=== PATIENT | female | born 1995 | race Caucasian/White ===

== ENCOUNTER 2017-03-30 23:44 | Emergency (ER) | payer OTHER ==
--- NOTE | 2017-03-31 00:04 | ED Physician Documentation ---
PD HPI FEMALE - Stated complaint Stated Complaint: FEMALE - Chief complaint Chief Complaint: Abd Pain - History obtained from History obtained from: Patient - History of Present Illness Timing - onset: Yesterday Timing - duration: Days (2) Timing - details: Abrupt onset, Intermittant, Waxing and waning Associated symptoms: Abdominal pain, Vaginal bleeding (menstrual amount). No: Fever Contributing factors: No: Exposed to STD Similar symptoms before: Diagnosis (dysmenorrhea in the past and uses Midol and Zofran. Has wirse than prior cramping and pain. No history of cysts nor STDs.) Recently seen: Not recently seen Review of Systems Constitutional: denies: Fever, Chills, Myalgias Nose: denies: Rhinorrhea / runny nose, Congestion Throat: denies: Sore throat Cardiac: denies: Chest pain / pressure Respiratory: denies: Dyspnea : reports: Vaginal bleeding. denies: Dysuria, Frequency, Hematuria, Discharge Skin: denies: Rash, Lesions PD PAST MEDICAL HISTORY - Past Medical History Cardiovascular: None : None - Present Medications Home Medications: Ambulatory Orders Medication Instructions Recorded Confirmed Folic Acid 0.4 mg PO DAILY 03/30/17 03/30/17 Hydrocodone/Acetaminophen [[place] 1 each PO Q6H PRN #15 tablet 03/31/17 5-325 Tablet] Naproxen [Naprosyn] 500 mg PO BID PRN #20 tablet 03/31/17 - Allergies Allergies/Adverse Reactions: Allergies Allergy/AdvReac Type Severity Reaction Status Date / Time cefaclor [From Ceclor] Allergy Hives Verified 03/30/17 23:51 metoclopramide HCl * Allergy Anxiety Verified 03/30/17 23:51 [From Reglan] PD ED PE NORMAL - Vitals Vital signs reviewed: Yes - General General: Alert and oriented X 3, Well developed/nourished, Other (appears uncomfortable) - HEENT HEENT: Pharynx benign - Neck Neck: Supple, no meningeal sign, No adenopathy - Cardiac Cardiac: RRR, No murmur - Respiratory Respiratory: Clear bilaterally - Abdomen Abdomen: Normal bowel sounds, Soft, Non distended, No organomegaly, Other ( tender suprapubic and LLQ; not tender RLQ. ) - Female Female : Deferred - Rectal Rectal: Deferred - Back Back: No CVA TTP - Derm Derm: Normal color, Warm and dry, No rash - Neuro Neuro: Alert and oriented X 3, No motor deficit, Normal speech Results - Vitals Vitals: Vital Signs - 24 hr 03/30/17 03/31/17 23:46 01:05 Temperature 36.2 C L Heart Rate 91 76 Respiratory 89 H 18 Rate Blood Pressure 125/81 H 125/71 O2 Saturation 100 100 Oxygen O2 Source Room air - Labs Labs: Laboratory Tests 03/31/17 00:15 Urine Color YELLOW Urine Clarity HAZY Urine pH 7.0 Ur Specific [place] <=1.005 Urine Protein NEGATIVE Urine Glucose (UA) NEGATIVE Urine Ketones NEGATIVE Urine Occult Blood LARGE H Urine Nitrite NEGATIVE Urine Bilirubin NEGATIVE Urine Urobilinogen 0.2 (NORMAL) Ur Leukocyte Esterase NEGATIVE Urine RBC 6-10 H Urine WBC 0-3 Ur Squamous Epith Cells RARE Squamous Urine Bacteria None Seen Ur Microscopic Review INDICATED Urine Culture Comments NOT INDICATED Urine HCG, Qual NEGATIVE PD MEDICAL DECISION MAKING - ED course Complexity details: reviewed results (not and not UTI. Not tender RLQ. so Reasonable to be presuming dysmenorrhea. Consider ovarian cyst as possible. Discussed U/S or not and we opted with just treating the symptoms. Denies risk for STD. ), considered differential, d/w patient Departure - Departure Disposition: 01 Home, Self Care Clinical Impression: Dysmenorrhea Condition: Stable Record reviewed to determine appropriate education?: Yes Instructions: ED Cramping Menstrual Follow-Up: [facility] [Provider Group] Prescriptions: Naproxen [Naprosyn] 500 mg PO BID PRN #20 tablet PRN Reason: Pain Hydrocodone/Acetaminophen [[place] 5-325 Tablet] 1 each PO Q6H PRN #15 tablet PRN Reason: Pain Comments: Drink lots of fluids. Ibuprofen or Naproxen twice daily for 5-6 days. Add Tylenol for milder pains, and hydrocodone as needed for worse pains. Follow up PCP if recurringly severe cramps with periods. Follow up as well if any symptoms of vaginitis (discharge, itching, odor, painful intercourse) as that can cause more painful periods as well. Discharge Date/Time: 03/31/17 01:06
[2017-03-31 00:29] LABS: BILIRUBIN,URINE NEGATIVE (NEGATIVE)
[2017-03-31 00:36] LABS: HCG UR QUAL NEGATIVE; UA w/ MICROSCOPIC CHARGE YES
[2017-03-31 00:37] LABS: UR CULTURE IF IND NOT INDICATED; WBC,URINE 0-3 /HPF (0-5)
[2017-03-31] MEDS ORDERED: HYDROcod/ACET 5/325 Prepack 6 PO ONE ×2 (00:37→00:43)
[2017-03-31] MEDS ORDERED: HYDROcod/ACETAM 5/325 MG TABLET PO STA (00:37)
[2017-03-31] MEDS ORDERED: ONDANSETRON ODT 4 MG TABLET TL STA (00:37)
[2017-03-31] MEDS ORDERED: IBUPROFEN 600 MG TABLET PO STA (00:37)
[2017-03-31] MEDS ORDERED: HYDROcod/ACETAM 5/325 MG TABLET ONE (00:43)
[2017-03-31] MEDS ORDERED: ONDANSETRON ODT 4 MG TABLET ONE (00:43)
[2017-03-31] MEDS ORDERED: IBUPROFEN 600 MG TABLET PO ONE (00:44)
[2017-03-31 01:06] VITALS: BP 125/71
== END 2017-03-31 01:06 | disposition home or self-care (01) ==
LOC: ED 23:44
DX: N94.6 Dysmenorrhea, unspecified (principal)
CPT/HCPCS: 81001; 81025; 99283; A9270; Q0162; 81003; 87086

== ENCOUNTER 2018-05-15 00:03 | Emergency (ER) | payer OTHER ==
[2018-05-15 00:59] LABS: BILIRUBIN,URINE NEGATIVE (NEGATIVE); GLUCOSE, URINE (UA) NEGATIVE (NEGATIVE); KETONES,URINE (UA) NEGATIVE (NEGATIVE); LEUKOCYTE ESTERASE, URINE NEGATIVE (NEGATIVE); NITRITE,URINE NEGATIVE (NEGATIVE); OCCULT BLOOD,URINE NEGATIVE (NEGATIVE); PH,URINE 6.5 PH (5.0-7.5); PROTEIN,URINE NEGATIVE (NEGATIVE); UROBILINOGEN,URINE 0.2 (NORMAL) E.U./dL (NORMAL)
[2018-05-15 01:01] LABS: CLARITY,URINE CLEAR (CLEAR)
[2018-05-15 01:01] LABS: BASOPHILS % (AUTO) 0.4 %; EOSINOPHILS # (AUTO) 0.3 10^3/uL (0.0-0.7); EOSINOPHILS % (AUTO) 2.9 %; LYMPHOCYTES % (AUTO) 35.1 %; MEAN CORPUSCULAR HEMOGLOBIN 30.1 pg (27.0-31.0); MEAN CORPUSCULAR VOLUME 85.9 fL (81.0-99.0); MEAN PLATELET VOLUME 9.1 fL (7.9-10.8); MONOCYTES # (AUTO) 0.6 10^3/uL (0.0-1.0); MONOCYTES % (AUTO) 7.3 %; NEUTROPHILS # (AUTO) 4.6 10^3/uL (1.5-6.6); NEUTROPHILS % (AUTO) 54.3 %; PLT - PLATELET COUNT 253 10^3/uL (130-450); RED BLOOD COUNT 4.64 10^6/uL (4.20-5.40); RED CELL DISTRIBUTION WIDTH 12.7 % (12.0-15.0); WHITE BLOOD COUNT 8.5 x10^3/uL (4.8-10.8)
[2018-05-15 01:12] LABS: ALBUMIN/GLOBULIN RATIO 1.4 (1.0-2.2); CALCIUM 9.4 mg/dL (8.5-10.3); CREATININE 0.6 mg/dL (0.4-1.0); TOTAL PROTEIN 8.5 g/dL (6.7-8.2)
[2018-05-15 01:25] LABS: HCG,QUALITATIVE BLOOD NEGATIVE
--- NOTE | 2018-05-15 01:25 | XRAY Report ---
Procedure Date: 05/15/2018 Accession Number: [id number] / [id number] Procedure: XR - Chest 2 View X-Ray CPT Code: 70155 FULL RESULT: EXAM: CHEST RADIOGRAPHY EXAM DATE: 05/15/2018 01:08 AM. CLINICAL HISTORY: CP. COMPARISON: None. TECHNIQUE: 2 views. FINDINGS: Lungs/Pleura: No focal opacities evident. No pleural effusion. No pneumothorax. Normal volumes. Mediastinum: Heart and mediastinal contours are unremarkable. Other: None. IMPRESSION: Normal 2-view chest radiography. RADIA
--- NOTE | 2018-05-15 01:36 | ED Physician Documentation ---
History of Present Illness - Stated complaint Stated Complaint: DIZZINESS,SOA - Chief complaint Chief Complaint: General - History obtained from History obtained from: Patient - Additonal information Additional information: 22-year-old female presents the emergency department with increasing general fatigue, weakness, shortness of breath and chest pain which started this evening. The symptoms have been ongoing and progressive. Tonight the patient developed sharp stabbing chest pain. The patient denies any concern for being . The patient denies abdominal pain, dysuria, vomiting, vaginal bleeding or blood in her stools. The patient denies recent URI symptoms or peripheral edema. The patient denies unilateral leg weakness. No other associated symptoms. No triggering factors. The patient also reports that her hair seems to be falling out. Symptoms are described as moderate Review of Systems Constitutional: reports: Fatigue. denies: Fever, Chills Eyes: denies: Discharge Ears: denies: Ear pain Nose: denies: Congestion Throat: denies: Sore throat Cardiac: reports: Chest pain / pressure, Palpitations. denies: Pedal edema, Calf pain Respiratory: reports: Dyspnea. denies: Cough, Hemoptysis, Wheezing GI: denies: Abdominal Pain, Vomiting : denies: Dysuria, Hematuria Skin: denies: Rash Musculoskeletal: denies: Neck pain Neurologic: denies: Generalized weakness, Syncope Immunocompromised: denies: Chemotherapy PD PAST MEDICAL HISTORY - Past Medical History Cardiovascular: None Respiratory: Asthma : None - Past Surgical History Past Surgical History: No - Present Medications Home Medications: Ambulatory Orders Medication Instructions Recorded Confirmed Folic Acid 0.4 mg PO DAILY 03/30/17 03/30/17 Hydrocodone/Acetaminophen [[place] 1 each PO Q6H PRN #15 tablet 03/31/17 5-325 Tablet] Naproxen [Naprosyn] 500 mg PO BID PRN #20 tablet 03/31/17 - Allergies Allergies/Adverse Reactions: Allergies Allergy/AdvReac Type Severity Reaction Status Date / Time cefaclor [From Ceclor] Allergy Hives Verified 03/30/17 23:51 metoclopramide HCl * Allergy Anxiety Verified 03/30/17 23:51 [From Reglan] codeine AdvReac Nausea Verified 05/15/18 00:17 - Social History Does the pt smoke?: No Smoking Status: Never smoker Does the pt drink ETOH?: No Does the pt have substance abuse?: No - Immunizations Immunizations are current?: Yes PD ED PE NORMAL - General General: Alert and oriented X 3, No acute distress - HEENT HEENT: Atraumatic, PERRL, EOMI, Ears normal - Neck Neck: Supple, no meningeal sign - Cardiac Cardiac: RRR, Strong equal pulses - Respiratory Respiratory: No respiratory distress, Clear bilaterally - Abdomen Abdomen: Soft, Non tender - Derm Derm: Normal color - Extremities Extremities: No deformity, No edema - Neuro Neuro: Alert and oriented X 3, Normal speech - Psych Psych: Normal mood Results - Vitals Vitals: Vital Signs - 24 hr 05/15/18 00:14 Temperature 36.5 C Heart Rate 89 Respiratory 18 Rate Blood Pressure 118/75 O2 Saturation 99 Oxygen O2 Source Room air - EKG (time done) 00: 35 Rate: Rate (enter#) Rhythm: NSR Intervals: Normal NC, QRS normal QRS: Normal Ischemia: Normal ST segments Other comments: Other comments (Normal sinus rhythm without acute ischemic changes) - Labs Labs: Laboratory Tests 05/15/18 05/15/18 05/15/18 00:43 00:45 00:45 WBC 8.5 RBC 4.64 Hgb 14.0 Hct 39.9 MCV 85.9 MCH 30.1 MCHC 35.0 RDW 12.7 Plt Count 253 MPV 9.1 Neut # (Auto) 4.6 Lymph # (Auto) 3.0 Sunflower # (Auto) 0.6 Eos # (Auto) 0.3 Baso # (Auto) 0.0 Absolute Nucleated RBC 0.00 Nucleated RBC % 0.1 Sodium 138 Potassium 3.5 Chloride 104 Carbon Dioxide 25 Anion Gap 9.0 BUN 12 Creatinine 0.6 Estimated GFR (MDRD) 124 Glucose 88 Calcium 9.4 Magnesium 2.0 Total Bilirubin 1.0 AST 20 ALT 13 Alkaline Phosphatase 67 Troponin I Total Protein 8.5 H Albumin 5.0 Globulin 3.5 Albumin/Globulin Ratio 1.4 Lipase 39 Serum HCG, Qual Urine Color YELLOW Urine Clarity CLEAR Urine pH 6.5 Ur Specific [place] 1.020 Urine Protein NEGATIVE Urine Glucose (UA) NEGATIVE Urine Ketones NEGATIVE Urine Occult Blood NEGATIVE Urine Nitrite NEGATIVE Urine Bilirubin NEGATIVE Urine Urobilinogen 0.2 (NORMAL) Ur Leukocyte Esterase NEGATIVE Ur Microscopic Review NOT INDICATED Urine Culture Comments NOT INDICATED 05/15/18 05/15/18 00:45 00:45 WBC RBC Hgb Hct MCV MCH MCHC RDW Plt Count MPV Neut # (Auto) Lymph # (Auto) Sunflower # (Auto) Eos # (Auto) Baso # (Auto) Absolute Nucleated RBC Nucleated RBC % Sodium Potassium Chloride Carbon Dioxide Anion Gap BUN Creatinine Estimated GFR (MDRD) Glucose Calcium Magnesium Total Bilirubin AST ALT Alkaline Phosphatase Troponin I < 0.04 Total Protein Albumin Globulin Albumin/Globulin Ratio Lipase Serum HCG, Qual NEGATIVE Urine Color Urine Clarity Urine pH Ur Specific Pep Urine Protein Urine Glucose (UA) Urine Ketones Urine Occult Blood Urine Nitrite Urine Bilirubin Urine Urobilinogen Ur Leukocyte Esterase Ur Microscopic Review Urine Culture Comments - Rads (name of study) CXR Radiology: Final report received PD MEDICAL DECISION MAKING - ED course ED course: The patient's workup does not reveal any acute abnormality that would necessitate admission to the hospital. The patient's heart score places her into a low risk category and the patient appears appropriate for discharge and further workup as an outpatient. The patient's PERC score and well score are 0 , Which make pulmonary embolism and DVT unlikely. I discussed the findings and plan with the patient, she understands and agrees. I discussed warning signs and recommended returning to the emergency department immediately for worsening or any concerns. - Sepsis Event Vital Signs: Vital Signs - 24 hr 05/15/18 00:14 Temperature 36.5 C Heart Rate 89 Respiratory 18 Rate Blood Pressure 118/75 O2 Saturation 99 Oxygen O2 Source Room air Departure - Departure Disposition: 01 Home, Self Care Clinical Impression: Dizziness, Shortness of breath Chest pain Qualifiers: Chest pain type: unspecified Qualified Code(s): R07.9 - Chest pain, unspecified Condition: Good Instructions: ED Dizziness [facility], ED Chest Pain [facility] Comments: Please follow-up with your primary care physician this coming week for further workup and evaluation of your symptoms. Please return to the emergency department immediately for worsening symptoms or any concerns.
[2018-05-15 01:40] VITALS: BP 111/72
== END 2018-05-15 01:43 | disposition home or self-care (01) ==
LOC: ED 00:03
DX: R42 Dizziness and giddiness (principal); R06.02 Shortness of breath; R07.9 Chest pain, unspecified
CPT/HCPCS: 36415; 71046; 80053; 81001; 81003; 83690; 83735; 84484; 84703; 85025; 87086; 93005; 99283

== ENCOUNTER 2018-12-06 06:16 | Day surgery (SDC) | payer OTHER ==
[2018-12-06 06:36] LABS: HCG UR QUAL NEGATIVE
--- NOTE | 2018-12-06 06:46 | ANESTHESIA ---
Pre-Anesthesia VS, & Labs - Diagnosis primary dysmenorrhea - Procedure diagnostic laparoscopy Vital Signs: Temp Pulse Resp BP Pulse Ox 36.7 C 121 H 20 119/81 H 96 12/06/18 06:31 12/06/18 06:31 12/06/18 06:31 12/06/18 06:31 12/06/18 06:31 Height 5 ft 1 in Weight (kg) 59.1 kg Body Mass Index 25.6 - NPO >8 hours - Is Patient ?: No - Lab Results Lab results reviewed: Yes Home Medications and Allergies Home Medications: Ambulatory Orders Albuterol Sulfate [Albuterol Sulfate Hfa] 18 gm IH 11/26/18 Cholecalciferol (Vitamin D3) [Vitamin D3] 1,000 unit PO 11/26/18 Magnesium 250 mg PO 11/26/18 Albuterol Sulfate [Albuterol Sulfate Hfa] 18 gm IH 11/26/18 Cholecalciferol (Vitamin D3) [Vitamin D3] 1,000 unit PO 11/26/18 Magnesium 250 mg PO 11/26/18 Allergies/Adverse Reactions: Allergies Allergy/AdvReac Type Severity Reaction Status Date / Time cefaclor [From Ceclor] Allergy Hives Verified 11/26/18 08:13 metoclopramide HCl * Allergy Anxiety Verified 11/26/18 08:13 [From Reglan] aspirin AdvReac Rash Verified 11/26/18 08:14 codeine AdvReac Nausea Verified 11/26/18 08:13 Anes History & Medical History - Anesthetic History Anesthesia Complications: reports: Slow wake-up Family history of Anesthesia Complications: Denies Family history of Malignant Hyperthermia: Denies - Medical History Cardiovascular: reports: None Pulmonary: reports: Asthma Gastrointestinal: reports: None Urinary: reports: Other Musculoskeletal: reports: None Endocrine/Autoimmune: reports: None Blood Disorders: reports: Anemia Skin: reports: None Smoking Status: Never smoker - Surgical History General: EGD Exam General: Alert Dental: Other (cap) Mouth Openin Fingerbreadth Neck Mobility: Normal Mallampati classification: II Thyromental Distance: 4-6 cm Respiratory: Lungs clear, Normal breath sounds, No respiratory distress, No accessory muscle use Cardiovascular: Regular rate, Normal S1, Normal S2, No murmurs Mental/Cognitive Status: Alert/Oriented X3, Normal for patient Cognitive Status: Within normal limits Plan Anesthesia Type: General Consent for Procedure(s) Verified and Reviewed: No Code Status: Attempt Resuscitation ASA classification: 2-Mild systemic disease Is this case an emergency?: No
[2018-12-06] MEDS ORDERED: LACTATED RINGERS 1,000 ML IV ONE ×2 (06:50→09:15)
[2018-12-06] MEDS ORDERED: SILVER NITRATE APPLICATOR TOP ONE (07:23)
[2018-12-06] MEDS ORDERED: BUPIVACAINE 0.5% PF 30 ML VIAL ONE (07:24)
[2018-12-06] MEDS ORDERED: PROPOFOL 200 MG/20 ML VIAL IVP ONE (07:30)
[2018-12-06] MEDS ORDERED: MIDAZOLAM 2 MG/2 ML VIAL IVP ONE (07:30)
[2018-12-06] MEDS ORDERED: NEOSTIGMINE 1 MG/1 ML 10 ML MDV IVP ONE (07:30)
[2018-12-06] MEDS ORDERED: GLYCOPYRROLATE 1 MG/5 ML VIAL IVP ONE (07:30)
[2018-12-06] MEDS ORDERED: LIDOCAINE 2% 10 ML MDV SUBQ ONE (07:30)
[2018-12-06] MEDS ORDERED: ROCURONIUM 50 MG/5 ML VIAL IVP ONE (07:30)
[2018-12-06] MEDS ORDERED: fentaNYL 100 MCG/2 ML VIAL IVP ONE (07:30)
[2018-12-06] MEDS ORDERED: KETOROLAC 30 MG/ML VIAL IVP ONE (07:30)
[2018-12-06] MEDS ORDERED: DEXAMETHASONE 4 MG/ML VIAL IVP ONE (07:30)
[2018-12-06] MEDS ORDERED: ONDANSETRON 4 MG/2 ML VIAL IVP ONE (07:30)
[2018-12-06] MEDS ORDERED: HYDROcod/ACETAM 10 MG/325 MG TABLET PO PRN (09:02)
[2018-12-06] MEDS: HYDROmorphone 0.5 MG/0.5 ML SYRINGE ONE ×2 (09:05→09:22)
--- NOTE | 2018-12-06 09:07 | OPERATIVE REPORT ---
Operative Report - General Procedure Date: 12/06/18 Planned Procedure: Diagnostic laparopscopy Pre-Op Diagnosis: Primary dysmenorrhea Procedure Performed: Diagnostic laparoscopy, fulguration of endometriosis Post Op Diagnosis: endometriosis - Procedure Note Primary Surgeon: Bailee Secondary Surgeon: Óscar Anesthesia Provider: Shabbir Anesthesia Technique: General ET tube Estimated Blood Loss (mL): 10 - Other Other Information/Narrative: Exam under anesthesia The uterus was of normal size shape and consistency and retroverted. There were no adnexal masses. Operative findings The uterus tubes and ovaries were all within normal limits. There were powder elias of the left uterosacral ligament and the right ovarian fossa. There were faint powder burn and cystic lesions in the right posterior cul-de-sac. The appendix appeared normal. The liver edge and gallbladder appeared normal. Procedure: The patient was taken to the operating room, where general endotracheal anesthesia was administered without difficulty. She was then positioned in the low dorsal lithotomy position with her lower extremities in [place] stirrups. Vagina, perineum, and abdomen were then prepped and draped in a sterile fashion. Procedure Time-Out was then performed. An exam under anesthesia was performed. A sterile bivalve speculum was then inserted into the vagina. The anterior lip of the cervix was grasped with a single-tooth tenaculum, then the cervix was serially dilated until a Humi uterine manipulator could be advanced and the balloon inflated. The speculum was then removed, and attention was turned to the laparoscopy. 0.5% Marcaine was injected infraumbilically, then a 7-mm horizontal skin incision made. A Verres needle was then inserted through the anterior layers of the abdominal wall with saline drop test suggesting intraperitoneal placement. Carbon dioxide gas insufflation was then performed with appropriate opening pressures noted. Once 2 L of gas was instilled, a 0-degree, 5 mm laparoscope was inserted into a 5 mm trocar and passed through the anterior layers of the abdominal wall using Optiview technique. The abdomen was visualized, then 2 additional ports placed at the left and right lower quadrants, first instilling local anesthetic, then placing the ports under direct visualization with the laparoscope. The patient was placed into Trendelenberg and bowel swept out of the cul-de-sac. The pelvis was visualized with the findings as noted above. Bovie cautery was utilized to fulgurate the endometriosis lesions. At this point the laparoscopy was deemed complete, and all trocars were removed from the abdomen. The carbon dioxide gas was then allowed to escape. The incisions were then closed with 4-0 Monocryl in a subcuticular fashion followed by Dermabond skin adhesive. The uterine manipulator was removed. At this point the procedure was deemed complete. The patient was then replaced supine, awakened, extubated, and transferred to the PACU in stable condition. There were no complications. Sponge, lap, and needle count were correct x 3. There were no complications.
[2018-12-06] MEDS ORDERED: ACETAMINOPHEN 1,000 MG/100 ML 100 ML IV ONE (09:10)
[2018-12-06] MEDS ORDERED: HYDROmorphone 0.5 MG/0.5 ML SYRINGE ONE (09:26)
[2018-12-06] MEDS ORDERED: HYDROcod/ACETAM 5/325 MG TABLET ONE (10:32)
[2018-12-06 11:09] VITALS: BP 112/68
== END 2018-12-06 11:08 | disposition home or self-care (01) ==
LOC: SDS 06:16
PROVIDERS: ATTEND Obstetrics & Gynecology
PROC: 0U5F4ZZ Destruction of Cul-de-sac, Percutaneous Endoscopic Approach (ICD-10-PCS; principal; 2018-12-06 07:30)
DX: N80.9 Endometriosis, unspecified (principal); J45.909 Unspecified asthma, uncomplicated
CPT/HCPCS: 58662; 81025; A9270; J0131; J1170; J7120